=== PATIENT | female | born 1940 | race Caucasian/White ===

== ENCOUNTER 2023-09-19 13:56 | Outpatient (OUT) | payer MEDICARE, SELFPAY ==
--- NOTE | 2023-09-19 | XR_ITS ---
[facility] [id number] Patient Name: NATASHA SANTACRUZ MRN: [id number] date: 1940 Sex: F Assigned Patient Location: Current Patient Location: Accession/Order Number: [id number] Exam Date: 09/19/2023 14:00 Report Date: 09/20/2023 07:20 At the request of: YOSELIN NI Procedure: XR wrist LT min 3V PROCEDURE: XR wrist LT min 3V COMPARISON: 09/12/2023 HISTORY: LEFT WRIST PAIN FINDINGS: BONES:Complex intra-articular fracture of the distal radius. Some increase in sclerosis consistent with bone formation. Severe degenerative changes medial carpus with [id number] articulation of the first carpometacarpal joint SOFT TISSUES:Negative. No visible soft tissue swelling. EFFUSION:None visible. OTHER: Bone details obscured by an overlying artifacts cast XR/XR wrist LT min 3V IMPRESSION: Stable healing complex intra-articular distal radius fracture Electronically authenticated by: YAMILET BLANCA Date: 09/20/2023 07:20
== END 2023-09-19 13:57 | disposition home or self-care (01) ==
LOC: EC 13:57
PROVIDERS: PCP Internal Medicine; Visit Provider Student in an Organized Health Care Education/Training Program
DX: S52.572D Other intraarticular fracture of lower end of left radius, subsequent encounter for closed fracture with routine healing (principal)
CPT/HCPCS: 73110